=== PATIENT | female | born 1960 | race Caucasian/White ===

== ENCOUNTER 2018-04-29 05:23 | Emergency (ER) | payer OTHER ==
[~2018-04-29] VITALS: Ht 154.9 cm; Wt 72.6 kg
[~2018-04-29 05:23] MED LIST: COMBIVENT RESPIM4 GM INH; DOXYCYCLINE MO100 MG PO; FLOMAX0.4 MG PO; KEFLEX500 MG PO; KETOROLAC TROME10 MG PO; NORCO 5-325 TA1 EACH PO; PERCOCET 5-3251 EACH PO; PREDNISONE20 MG PO; PROAIR HFA8.5 GM INH
[2018-04-29] MEDS ORDERED: PYRIDIUM200 MG PO (06:56)
[2018-04-29] MEDS ORDERED: MACROBID 100 M100 MG PO (06:56)
== END 2018-04-29 07:14 | disposition home or self-care (01) ==
LOC: ED 05:23
DX: N39.0 Urinary tract infection, site not specified (principal); K21.9 Gastro-esophageal reflux disease without esophagitis; J44.9 Chronic obstructive pulmonary disease, unspecified; F17.200 Nicotine dependence, unspecified, uncomplicated
CPT/HCPCS: 81001; 87077; 87088; 87186; 99283

== ENCOUNTER 2024-12-08 07:04 | Emergency (ER) | payer OTHER ==
[~2024-12-08] VITALS: Ht 154.9 cm; Wt 61.5 kg
[~2024-12-08 07:04] MED LIST changes: +MACROBID 100 M100 MG PO; +PYRIDIUM200 MG PO
[2024-12-08] MEDS ORDERED: PERCOCET 5-3251 EACH PO (07:24)
[2024-12-08] MEDS ORDERED: VENTOLIN HFA18 GM INH (07:25)
[2024-12-08] MEDS ORDERED: CYCLOBENZAPRINE10 MG PO (07:25)
[2024-12-08] MEDS ORDERED: CYCLOBENZAPRINE HCL 10 MG TAB PO ONE (07:30)
[2024-12-08] MEDS ORDERED: LIDOCAINE HCL 4% 1 EACH PATCH TD ONE (07:30)
[2024-12-08] MEDS ORDERED: OXYCODONE/APAP 5/325 TAB PO ONE (07:30)
[2024-12-08 07:38] VITALS: BP 163/72
[2024-12-08] MEDS ORDERED: LIDOCAINE PATCH REMOVAL 1 EA TD SCH (21:00)
== END 2024-12-08 07:38 | disposition home or self-care (01) ==
LOC: ED 07:04
DX: M62.830 Muscle spasm of back (principal); J44.9 Chronic obstructive pulmonary disease, unspecified; K21.9 Gastro-esophageal reflux disease without esophagitis; F17.200 Nicotine dependence, unspecified, uncomplicated
CPT/HCPCS: 99283; A9270